=== PATIENT | male | born 1950 | race African-American/Black ===

== ENCOUNTER → 2018-05-18 | Outpatient (CLI) | payer OTHER ==
[~2018-05-18] MED LIST: CELEBREX 200 M200 M1; CELEBREX50 MG PO; CIPROFLOXACIN500 M1 PO; CLARITIN-D 12 H1 TA1 PO; NORCO 5-325 TA1 EACH PO; OXYCODONE HCL 55 MG PO; ULTRAM 50MG TAB50 MG PO; ZOFRAN ODT4 MG PO; [UNRECOGNIZED DRUG - REMARK]
== END ==
LOC: RAD 06:40
DX: M19.072 Primary osteoarthritis, left ankle and foot (principal)